=== PATIENT | female | born 1965 | race Caucasian/White ===

== ENCOUNTER 2025-04-27 16:51 | Emergency (ER) | payer BC ==
[~2025-04-27] VITALS: Ht 167.6 cm; Wt 70.0 kg
[~2025-04-27 16:51] MED LIST: GABA-535 PO
[2025-04-27 16:56] VITALS: BP 132/87; PULSE 93; RESP 18; TEMP 97.3; O2SAT 99
--- NOTE | 2025-04-27 17:02 | Physician Documentation ---
History of Present Illness ~ Chief Complaint: Neck pain Stated Complaint: NECK PAIN HPI 59-year-old female who presents to the emergency department for neck pain and r equesting help quitting alcohol use. She reports that a year ago, she fell, and has had neck pain ever since. The pain has been worse for the last week. She does not report any recent falls. Her usual alcohol intake his one bowel of wine today. She reports that she has already had that much to drink today. She denies fevers or chills, chest pain or shortness of breath for Medication Reconciliation Allergies: Coded Allergies: Penicillins (Verified Allergy, Unknown, 04/27/25) Scheduled Gabapentin (Gabapentin), 1 CAP PO Q8H Past Medical History Past Medical History: No Pertinent History Past Surgical History: noncontributory Alcohol Use: Heavy Drug Use: none Lives with: S/O Lives In: Home Review of Systems ROS As stated above in the HPI, otherwise all systems are reviewed and negative. Physical Exam Vital Signs: Temperature: 97.3, Source: Temporal, Heart Rate: 93, Respiratory Rate: 18, BP: 132/87, Pulse Oximetry: 99, Weight: 70.000 Physical Exam General: Alert, no apparent distress. Neck: Full range of motion, but does report some pain with ROM. TTP musculature but no TTP over cervical spinal bones. Respiratory: Lungs clear, no respiratory distress. Chest: No accessory muscle use. Cardiovascular: Regular rate and rhythm, no murmurs. Gastrointestinal: Soft, nontender, nondistended. Bowels sounds present. Extremities: Normal range of motion, no deformity. Neurologic: Oriented x4. Psychiatric: Normal mood and affect. Skin: Normal color, warm and dry. No edema, no ecchymosis. Progress Results/Orders Results/Orders Vital Signs 04/27/25 16:56 Temp 97.3 Pulse 93 Resp 18 B/P (MAP) 132/87 Pulse Ox 99 Medical Decision Making Differential Dx:Considerations: Include: Cervical muscle spasm, Discitis, DJD, Meningitis, Thyroiditis, Torticollis, Vertebral artery dissect. Departure Referrals: NO PRIMARY CARE PROVIDER (PCP) Signature Scribe Signature: x Attestation: The note accurately reflects work and decisions made by me.Yesica Moreland NP 04/27/25 17:02 YESICA RAPHAEL NP Apr 27, 2025 17:02
[2025-04-27 17:26] LABS: MEAN PLATELET VOLUME 6.6 FL (7.4-10.4); RED CELL DISTRIBUTION WIDTH 13.8 % (11.5-14.5)
[2025-04-27 17:53] LABS: CREATININE 0.66 MG/DL (0.40-0.90); TOTAL CARBON DIOXIDE 21.5 MMOL/L (24-32); eCRCL 86 ML/MIN; eGFR > 90 ML/MIN
[2025-04-27 17:58] LABS: ETHANOL 356 MG/DL (<10)
[2025-04-28] MEDS ORDERED: CHLO25CA10 PO (21:39)
== END 2025-04-27 20:05 | disposition left against medical advice (07) ==
LOC: ER 16:51
DX: M54.2 Cervicalgia (principal); F10.90 Alcohol use, unspecified, uncomplicated; Y90.9 Presence of alcohol in blood, level not specified
CPT/HCPCS: 36415; 80053; 80320; 83690; 85025; 99283

== ENCOUNTER 2025-04-28 01:39 | Emergency (ER) | payer BC, OTHER ==
[~2025-04-28] VITALS: Ht 167.6 cm; Wt 70.2 kg
[2025-04-28 01:41] VITALS: PULSE 93; RESP 16; TEMP 97.5; O2SAT 98
[2025-04-28] MEDS ORDERED: CHLO25CA10 PO (21:39)
== END 2025-04-28 02:50 | disposition left against medical advice (07) ==
LOC: ER 01:39
DX: M54.2 Cervicalgia (principal); Z88.0 Allergy status to penicillin; Z88.8 Allergy status to other drugs, medicaments and biological substances
CPT/HCPCS: 99281

== ENCOUNTER 2025-04-28 16:55 | Emergency (ER) | payer BC, OTHER ==
[~2025-04-28] VITALS: Ht 167.6 cm; Wt 67.2 kg
--- NOTE | 2025-04-28 20:34 | Physician Documentation ---
History of Present Illness ~ Chief Complaint: Neck pain Stated Complaint: NECK PAIN Time Seen by MD: 21:02 Source: patient, EMS HPI This is a 59-year-old female brought in by EMS for two days of neck pain radiating to her head. Per EMS report patient reported pain worse night and tingling to fingers and toes. Patient additionally reported concern for alcohol withdrawal as she has a daily heavy drinker with her last drink being yesterday, patient reports feeling of shakiness similar to previous episodes of alcohol withdrawal, patient reports no history of seizures with alcohol withdrawals. Medication Reconciliation Allergies: Coded Allergies: Penicillins (Verified Allergy, Unknown, 04/28/25) sulfamethoxazole (Verified Allergy, Unknown, rash, 04/28/25) trimethoprim (Verified Allergy, Unknown, rash, 04/28/25) Scheduled Gabapentin (Gabapentin), 1 CAP PO Q8H Past Medical History Past Medical History: No Pertinent History Past Surgical History: noncontributory Alcohol Use: Heavy Drug Use: none Lives with: S/O Lives In: Home Review of Systems ROS As stated above in the HPI, otherwise all systems are reviewed and negative. Physical Exam Vital Signs: Temperature: 97.6, Source: Temporal, Heart Rate: 98, Respiratory Rate: 18, BP: 157/90, Pulse Oximetry: 98, Weight: 67.200 Oxygen Flow Rate: 0 Physical Exam VITALS: Reviewed and as above. GENERAL: Alert, nontoxic appearing, no apparent distress. HEENT: RESPIRATORY: No increased work of breathing, no respiratory distress, speaking in full clear sentences CHEST: CV: BACK: GI: MUSCULOSKELETAL: SKIN: NEURO: PSYCH: Mildly anxious appearing Progress Results/Orders Results/Orders Completed Orders - ZOLTAN UREÑA MD Chlordiazepoxide Capsule (Librium Capsul (04/28/25 21:10) Ketorolac Trometh 15mg/Ml Vial (Toradol (04/28/25 21:10) Acetaminophen 1,000mg/100ml Iv (Ofirmev (04/28/25 21:10) Orphenadrine Citrate Inj. (Norflex Inj.) (04/28/25 21:10) Vital Signs 04/28/25 04/28/25 04/28/25 04/28/25 17:04 20:39 21:00 21:03 Temp 97.6 97.8 Pulse 98 85 79 Resp 18 15 16 16 B/P (MAP) 157/90 139/76 (97) 166/87 (113) Pulse Ox 98 99 100 O2 Flow Rate 0 0 0 Medical Decision Making Findings Patient presents to the emergency room for evaluation of neck pain. Differentials include not limited due torticollis, meningitis, ACS. Given tenderness to palpation to musculature of patient's bilateral posterior neck she is likely suffering from torticollis. Vital signs are stable no fevers he had not believe she is suffering from meningitis. Reassuring heart rate with no significant tremors and he had not believe patient is in florid alcohol withdrawal. We will give small amount of Librium which he would help with her neck as well. ER precautions regarding fevers discussed. Differential Dx:Considerations: Include: Cervical muscle spasm, Discitis, DJD, Meningitis, Thyroiditis, Torticollis, Vertebral artery dissect., Other (C-spine injury, radiculopathy, alcohol withdrawal, thiamine deficiency) Departure Disposition: HOME / SELF CARE / HOMELESS Impression: Primary Impression: Torticollis Condition: Stable Discharge Instructions: Acute Torticollis, Adult Additional Instructions: Ibuprofen and Tylenol may be taken together for pain. I will give you some antispasm medications. Return for fevers of 100.4 or above Referrals: NO PRIMARY CARE PROVIDER (PCP) Prescriptions Chlordiazepoxide Hcl (Librium) 25 Mg Capsule 25 MG PO Q6H for Withdrawal, #7 CAP Prov: ZOLTAN UREÑA MD 04/28/25 Signature Scribe Signature: No scribe Attestation: The note accurately reflects work and decisions made by me.Zoltan Ureña MD 04/28/25 21:39 [facility] Apr 28, 2025 20:34 ZOLTAN UREÑA MD Apr 28, 2025 21:37
[2025-04-28 20:39] VITALS: TEMP 97.8
[2025-04-28] MEDS: ketorolac trometh 15mg/ml vial 15 MG/ML ML IV ONE (21:31)
[2025-04-28] MEDS: acetaminophen 1,000mg/100ml IV 100 ML IV ONE (21:32)
[2025-04-28] MEDS: orphenadrine citrate 60mg/2ml inj. IV ONE (21:32)
[2025-04-28] MEDS ORDERED: CHLO25CA10 PO (21:39)
[2025-04-28 22:14] VITALS: BP 141/79; PULSE 82; RESP 16; O2SAT 96
== END 2025-04-28 22:21 | disposition home or self-care (01) ==
LOC: ER 16:55
DX: M43.6 Torticollis (principal); Z88.0 Allergy status to penicillin; Z88.1 Allergy status to other antibiotic agents; Z88.2 Allergy status to sulfonamides; Z88.8 Allergy status to other drugs, medicaments and biological substances
CPT/HCPCS: 96365; 96375; 99284; J0131; J1885; J2360